=== PATIENT | female | born 1965 | race Caucasian/White ===

== ENCOUNTER 2017-03-30 03:54 | Emergency (ER) | payer MEDICAID ==
[2017-03-30 03:54] VITALS: BMI 24.7
[2017-03-30 04:16] VITALS: TEMP 98.1; O2SAT 98
[2017-03-30] MEDS ORDERED: TraMADol/Apap 37.5/325 mg Tab PO STA (05:31)
[2017-03-30] MEDS ORDERED: Tmp-Smz 800 mg-160 mg DS Tab PO ONE (05:31)
--- NOTE | 2017-03-30 05:31 | ED PDOC ---
Arrival/HPI - General Chief Complaint: Abnormal Skin Integrity Time Seen by Provider: 03/30/17 05:06 Historian: Patient - History of Present Illness Narrative History of Present Illness (Text): 03/30/17 05:06 Miryam Mosquera is a 51 year old female, whose past medical history includes hypercholesterolemia and GERD, who presents to the emergency department complaining of a cyst under her left armpit for one week. Patient denies any fever, chills, chest pain, shortness of breath, nausea, vomiting, diarrhea, urinary symptoms, back pain, neck pain, headache, dizziness, or any other complaints. Time/Duration: 1 week Symptom Onset: Gradual Symptom Course: Unchanged Severity Level: Mild Activities at Onset: Light Context: Home Past Medical History - Provider Review Nursing Documentation Reviewed: Yes - Infectious Disease Hx of Infectious Diseases: None - Tetanus Immunization Tetanus Immunization: Unknown - Past Medical History Past Medical History: No Previous - Cardiac Hx Cardiac Disorders: Yes - Pulmonary Hx Respiratory Disorders: No - Neurological Hx Neurological Disorder: No - HEENT Hx HEENT Disorder: No - Renal Hx Renal Disorder: No - Endocrine/Metabolic Hx Endocrine Disorders: No - Hematological/Oncological Hx Blood Disorders: No - Integumentary Hx Dermatological Disorder: No - Musculoskeletal/Rheumatological Hx Musculoskeletal Disorders: No - Gastrointestinal Hx Gastrointestinal Disorders: Yes Hx Gastroesophageal Reflux: Yes - Genitourinary/Gynecological Hx Genitourinary Disorders: No - Psychiatric Hx Psychophysiologic Disorder: No Hx Substance Use: No - Past Surgical History Past Surgical History: No Previous - Surgical History Hx Tubal Ligation: Yes - Anesthesia Hx Anesthesia: Yes Hx Anesthesia Reactions: No Hx Malignant Hyperthermia: No - Suicidal Assessment Feels Threatened In Home Enviroment: No Family/Social History - Physician Review Nursing Documentation Reviewed: Yes Family/Social History: No Known Family HX Smoking Status: Never Smoked Hx Alcohol Use: Yes Hx Substance Use: No Allergies/Home Meds Allergies/Adverse Reactions: Allergies No Known Allergies Allergy (Verified 01/23/16 16:50) Home Medications: Home Meds Medication Instructions Recorded Confirmed Ranitidine HCl [Zantac 150] 150 mg PO BID 10/29/13 05/20/15 Review of Systems - Physician Review All systems were reviewed & negative as marked: Yes - Review of Systems Constitutional: absent: Fevers, Night Sweats Eyes: absent: Vision Changes ENT: absent: Hearing Changes, Rhinorrhea Respiratory: absent: SOB Cardiovascular: absent: Chest Pain Gastrointestinal: absent: Abdominal Pain Genitourinary Female: absent: Dysuria, Urine Output Changes Musculoskeletal: absent: Arthralgias Skin: Other (cyst below left armpit) Neurological: absent: Headache, Dizziness Endocrine: absent: Diaphoresis Hemo/Lymphatic: absent: Adenopathy Psychiatric: absent: Anxiety Physical Exam Vital Signs Reviewed: Yes Vital Signs Temp Pulse Resp BP Pulse Ox 03/30/17 05:43 69 17 137/68 98 03/30/17 04:11 98.1 F 72 18 143/74 98 Temperature: Afebrile Blood Pressure: Normal Pulse: Regular Respiratory Rate: Normal Appearance: Positive for: Well-Appearing, Non-Toxic, Comfortable Pain Distress: None Mental Status: Positive for: Alert and Oriented X 3 - Systems Exam Head: Present: Atraumatic, Normocephalic Pupils: Present: PERRL Extroacular Muscles: Present: EOMI Conjunctiva: Present: Normal Mouth: Present: Moist Mucous Membranes Neck: Present: Normal Range of Motion Respiratory/Chest: Present: Clear to Auscultation, Good Air Exchange. No: Respiratory Distress, Accessory Muscle Use Cardiovascular: Present: Regular Rate and Rhythm, Normal S1, S2. No: Murmurs Abdomen: Present: Normal Bowel Sounds. No: Tenderness, Distention, Peritoneal Signs Back: Present: Normal Inspection Upper Extremity: Present: Normal Inspection. No: Cyanosis, Edema Lower Extremity: Present: Normal Inspection. No: Edema Neurological: Present: GCS=15, CN II-XII Intact, Speech Normal Skin: Present: Abscess (3cm in diameter under left armpit) Psychiatric: Present: Alert, Oriented x 3, Normal Insight, Normal Concentration Medical Decision Making ED Course and Treatment: 03/30/17 05:10 Impression: 51 year old female complaining of cyst under left armpit for one week. Differential Diagnosis included but are not limited to: Abscess Plan: -- Bactrim and Ultracet -- Reassess and disposition Prior Visits: Notes and results from previous visits were reviewed. Patient last seen in the ED on 01/23/16 for one month duration of intermittent headaches. Progress Notes: Reassessment Condition: Re-examined, Improved - Medication Orders Current Medication Orders: Discontinued Medications Tramadol/Acetaminophen (Ultracet 37.5/325 Mg) 1 tab PO ONCE STA Stop: 03/30/17 05:32 Last Admin: 03/30/17 05:39 Dose: 1 tab Trimethoprim/Sulfamethoxazole (Bactrim Ds Tab) 1 tab PO ONCE ONE PRN Reason: Protocol Stop: 03/30/17 05:32 Last Admin: 03/30/17 05:39 Dose: 1 tab - Scribe Statement The provider has reviewed the documentation as recorded by the Mague Merino Provider Scribe Attestation: All medical record entries made by the Scribe were at my direction and personally dictated by me. I have reviewed the chart and agree that the record accurately reflects my personal performance of the history, physical exam, medical decision making, and the department course for this patient. I have also personally directed, reviewed, and agree with the discharge instructions and disposition. Disposition/Present on Arrival - Present on Arrival Any Indicators Present on Arrival: No History of DVT/PE: No History of Uncontrolled Diabetes: No Urinary Catheter: No History of Decub. Ulcer: No History Surgical Site Infection Following: None - Disposition Have Diagnosis and Disposition been Completed?: Yes Diagnosis: Hidradenitis suppurativa of left axilla Disposition: HOME/ ROUTINE Disposition Time: 06:00 Condition: GOOD Discharge Instructions (ExitCare): Abscess Incision and Drainage (ED), Abscess (ED) Additional Instructions: follow up with your doctor or return in 48hrs for drain removal Prescriptions: Sulfamethoxazole/Trimethoprim [Bactrim DS 800 mg-160 mg] 1 tab PO BID #14 tab Tramadol HCl [Ultram] 50 mg PO QID #8 tab Referrals: Kian Mayes MD [Staff Provider] - Follow up with primary
[2017-03-30 05:44] VITALS: BP 137/68; PULSE 69; RESP 17
== END 2017-03-30 05:43 | disposition home or self-care (01) ==
LOC: ED 03:54
DX: L73.2 Hidradenitis suppurativa (principal)

== ENCOUNTER 2017-03-31 15:31 | Emergency (ER) | payer MEDICAID ==
[2017-03-31 15:35] VITALS: BMI 26.5
[2017-03-31 15:39] VITALS: TEMP 99.1
--- NOTE | 2017-03-31 15:50 | ED PDOC ---
Arrival/HPI <Abdon Tucker - Last Filed: 03/31/17 16:03> - General Historian: Patient - History of Present Illness Time/Duration: Prior to Arrival Symptom Onset: Sudden Symptom Course: Unchanged Context: Home <Rosalia Hamilton - Last Filed: 03/31/17 18:25> - General Chief Complaint: Trauma Time Seen by Provider: 03/31/17 15:39 - History of Present Illness Narrative History of Present Illness (Text): 03/31/17 15:53 51 yo female with PMH of HTN presented to ED after fall. Patient states that she was in the shower when she slipped and fell backwards, hitting her head on the side of the shower. She states she loss consciousness and fall was not witnessed. Patient states when she regained consciousness she was able to get up and ambulate. She denies any dizziness or lightheadedness prior to the fall. She states that the back of her head and neck hurt. Denies pain or trauma in any other location. Denies any dizziness, changes in vision, fever, chill, chest pain, abd pain. PMD: (Rosalia Hamilton) Past Medical History - Provider Review Nursing Documentation Reviewed: Yes - Infectious Disease Hx of Infectious Diseases: None - Tetanus Immunization Tetanus Immunization: Unknown - Past Medical History Past Medical History: No Previous - Cardiac Hx Cardiac Disorders: Yes - Pulmonary Hx Respiratory Disorders: No - Neurological Hx Neurological Disorder: No - HEENT Hx HEENT Disorder: No - Renal Hx Renal Disorder: No - Endocrine/Metabolic Hx Endocrine Disorders: No - Hematological/Oncological Hx Blood Disorders: No - Integumentary Hx Dermatological Disorder: No - Musculoskeletal/Rheumatological Hx Musculoskeletal Disorders: No - Gastrointestinal Hx Gastrointestinal Disorders: Yes Hx Gastroesophageal Reflux: Yes - Genitourinary/Gynecological Hx Genitourinary Disorders: No - Psychiatric Hx Psychophysiologic Disorder: No Hx Substance Use: No - Past Surgical History Past Surgical History: No Previous - Surgical History Hx Tubal Ligation: Yes - Anesthesia Hx Anesthesia: Yes Hx Anesthesia Reactions: No Hx Malignant Hyperthermia: No - Suicidal Assessment Feels Threatened In Home Enviroment: No <Rosalia Hamilton - Last Filed: 03/31/17 18:25> Family/Social History - Physician Review Nursing Documentation Reviewed: Yes Family/Social History: No Known Family HX Smoking Status: Light Smoker < 10 Cigarettes Daily Hx Alcohol Use: Yes Frequency of alcohol use: Socially Hx Substance Use: No <Rosalia Hamilton - Last Filed: 03/31/17 18:25> Allergies/Home Meds <Abdon Tucker - Last Filed: 03/31/17 16:03> <Rosalia Hamilton - Last Filed: 03/31/17 18:25> Allergies/Adverse Reactions: Allergies No Known Allergies Allergy (Verified 01/23/16 16:50) Home Medications: Home Meds Medication Instructions Recorded Confirmed Omeprazole 20 mg PO DAILY 03/31/17 03/31/17 Review of Systems - Review of Systems Constitutional: Normal. absent: Fatigue, Fevers Eyes: Normal. absent: Vision Changes ENT: Normal. absent: Sore Throat, Rhinorrhea Respiratory: Normal. absent: SOB, Cough, Wheezing Cardiovascular: Normal. absent: Chest Pain, Palpitations Gastrointestinal: Normal. absent: Abdominal Pain, Nausea, Vomiting Genitourinary Female: Normal. absent: Dysuria, Frequency, Hematuria Musculoskeletal: Normal, Neck Pain. absent: Arthralgias, Back Pain Skin: Normal. absent: Rash, Pruritis, Laceration Neurological: Headache. absent: Dizziness, Focal Weakness Endocrine: Normal. absent: Diaphoresis Hemo/Lymphatic: Normal. absent: Easy Bleeding, Easy Bruising Psychiatric: Normal <Rosalia Hamilton - Last Filed: 03/31/17 18:25> Physical Exam Finger Stick Blood Glucose: 69 - Systems Exam Head: Present: Normocephalic, Tenderness. No: Abrasion, Laceration Pupils: Present: PERRL Extroacular Muscles: Present: EOMI Conjunctiva: Present: Normal Mouth: Present: Moist Mucous Membranes Neck: Present: Normal Range of Motion, Paraspinal Tenderness Respiratory/Chest: Present: Clear to Auscultation, Good Air Exchange. No: Respiratory Distress, Accessory Muscle Use, Wheezes, Rales, Rhonchi, Tachypneic Cardiovascular: Present: Regular Rate and Rhythm, Normal S1, S2. No: Murmurs, Tachycardic, Bradycardic Abdomen: Present: Normal Bowel Sounds. No: Tenderness, Distention, Peritoneal Signs Back: Present: Normal Inspection. No: Midline Tenderness, Paraspinal Tenderness Upper Extremity: Present: Normal Inspection, Normal ROM, NORMAL PULSES. No: Cyanosis, Edema, Tenderness, Swelling Lower Extremity: Present: Normal Inspection, NORMAL PULSES, Normal ROM. No: Edema, CALF TENDERNESS, Tenderness, Swelling Neurological: Present: GCS=15, CN II-XII Intact, Speech Normal, Motor Func Grossly Intact, Normal Sensory Function, Gait Normal Skin: Present: Warm, Dry, Normal Color. No: Rashes, Diaphoretic, Cold, Pale, Laceration Psychiatric: Present: Alert, Oriented x 3, Normal Insight, Normal Concentration <Rosalia Hamilton - Last Filed: 03/31/17 18:25> Vital Signs Temp Pulse Resp BP Pulse Ox 03/31/17 17:07 79 18 167/89 H 99 03/31/17 15:38 99.1 F 85 20 169/98 H 99 Medical Decision Making <Abdon Tucker - Last Filed: 03/31/17 16:03> <Rosalia Hamilton - Last Filed: 03/31/17 18:25> ED Course and Treatment: Patient Seen With Resident: In agreement with resident note which contains more details about the patient. Patient was seen and evaluated with resident. Came up with plan and treatment together. A 51 year old female with neck pain and headache after slip and fall. Additional HPI as noted by resident. On physical exam, patient has paraspinal tenderness of neck, normal range of motion and tenderness of head with no abrasion or laceration. Ordered CT of head and CT of cervical spine. Will give patient Tylenol for pain. (Abdon Tucker) 03/31/17 16:01 Impression: 51 yo female with PMH of HTN presented after fall with head and neck pain. Differential diagnoses includes but not limited to: - hematoma Plan: - CT head and cervical spine - Tylenol 03/31/17 17:42 CT HEAD FINDINGS: HEMORRHAGE: No intracranial hemorrhage. BRAIN: No mass effect or edema. The bethea-white matter differentiation appears intact. Please note that MRI with diffusion imaging is more sensitive in the detection of acute ischemic event. VENTRICLES: No hydrocephalus. CALVARIUM: Unremarkable. PARANASAL SINUSES: Unremarkable as visualized. No significant inflammatory changes. MASTOID AIR CELLS: Unremarkable as visualized. No inflammatory changes. OTHER FINDINGS: Large posterior scalp hematoma. IMPRESSION: Large posterior scalp hematoma. 03/31/17 18:[address] FINDINGS: VERTEBRAE: No fracture. Normal alignment. No destructive bony lesion. DISCS/SPINAL CANAL/NEURAL FORAMINA: No significant central canal or neural foraminal stenosis. Discs heights are grossly preserved. PARASPINAL SOFT TISSUES: Unremarkable. OTHER FINDINGS: None. IMPRESSION: Unremarkable CT of the cervical spine. 03/31/17 18:23 - All results discussed with patient. She is to follow up with PMD in 1-2 days. If symptoms worsen she is to return to ED. Discharge instructions discussed with patient, all questions answered. (Rosalia Hamilton) - RAD Interpretation Radiology Orders: 03/31/17 15:48 CERVICAL SPINE W/O CONTRAST [CT] Stat HEAD W/O CONTRAST [CT] Stat - Medication Orders Current Medication Orders: Discontinued Medications Acetaminophen (Tylenol 325mg Tab) 975 mg PO STAT STA Stop: 03/31/17 15:49 Last Admin: 03/31/17 16:19 Dose: 975 mg - Scribe Statement The provider has reviewed the documentation as recorded by the Scribe <Abdon Tucker - Last Filed: 03/31/17 16:03> <Rosalia Hamilton - Last Filed: 03/31/17 18:25> - Scribe Statement Elijah Horton Provider Scribe Attestation: All medical record entries made by the Scribe were at my direction and personally dictated by me. I have reviewed the chart and agree that the record accurately reflects my personal performance of the history, physical exam, medical decision making, and the department course for this patient. I have also personally directed, reviewed, and agree with the discharge instructions and disposition. (Abdon Tucker) Disposition/Present on Arrival <Abdon Tucker - Last Filed: 03/31/17 16:03> - Present on Arrival Any Indicators Present on Arrival: No History of DVT/PE: No History of Uncontrolled Diabetes: No Urinary Catheter: No History of Decub. Ulcer: No History Surgical Site Infection Following: None - Disposition Have Diagnosis and Disposition been Completed?: Yes Disposition Time: 18:20 Patient Plan: Discharge <Rosalia Hamilton - Last Filed: 03/31/17 18:25> - Disposition Diagnosis: Neck pain, Hematoma Disposition: HOME/ ROUTINE Patient Problems: Current Active Problems Problem Status Onset Hematoma Acute Neck pain Acute Condition: GOOD Discharge Instructions (ExitCare): Fall Prevention (ED), Hematoma (ED) Additional Instructions: Miryam Mosquera, thank you for letting us take care of you today. Your provider was Dr. Hamilton and Dr. Tucker. You were treated for fall, hematoma of back of the head. The emergency medical care you received today was directed at your acute symptoms. If you were prescribed any medication, please fill it and take as directed. It may take several days for your symptoms to resolve. Return to the Emergency Department if your symptoms worsen, do not improve, or if you have any other problems. Please contact your doctor or call one of the physicians/clinics you have been referred to that are listed on the Patient Visit Information form that is included in your discharge packet. Bring any paperwork you were given at discharge with you along with any medications you are taking to your follow up visit. Our treatment cannot replace ongoing medical care by a primary care provider (PCP) outside of the emergency department. Thank you for allowing the [facility] team to be part of your care today. If you had an X-Ray or CT scan: A Radiologist will review the ED reading if any change in treatment is needed we will contact you. Prescriptions: Ibuprofen [Motrin] 600 mg PO Q6 PRN #20 tab PRN Reason: Pain, Moderate (4-7) Referrals: PCP,NO [Primary Care Provider] - Follow up with primary
[2017-03-31 17:07] VITALS: PULSE 79
--- NOTE | 2017-03-31 17:31 | CT ---
PROCEDURE: CT HEAD WITHOUT CONTRAST. HISTORY: FALL COMPARISON: None available. TECHNIQUE: Axial computed tomography images were obtained through the head/brain without intravenous contrast. Radiation dose: Total exam DLP = 725.84 mGy-cm. This CT exam was performed using one or more of the following dose reduction techniques: Automated exposure control, adjustment of the mA and/or kV according to patient size, and/or use of iterative reconstruction technique. FINDINGS: HEMORRHAGE: No intracranial hemorrhage. BRAIN: No mass effect or edema. The bethea-white matter differentiation appears intact. Please note that MRI with diffusion imaging is more sensitive in the detection of acute ischemic event. VENTRICLES: No hydrocephalus. CALVARIUM: Unremarkable. PARANASAL SINUSES: Unremarkable as visualized. No significant inflammatory changes. MASTOID AIR CELLS: Unremarkable as visualized. No inflammatory changes. OTHER FINDINGS: Large posterior scalp hematoma. IMPRESSION: Large posterior scalp hematoma.
--- NOTE | 2017-03-31 18:07 | CT ---
PROCEDURE: CT Cervical Spine without contrast HISTORY: <FALL> COMPARISON: None available. TECHNIQUE: Axial computed tomography images were obtained of the cervical spine without the use of intravenous contrast. Coronal and sagittal reformatted images were created and reviewed. Radiation dose: Total exam DLP = 510 mGy-cm. This CT exam was performed using one or more of the following dose reduction techniques: Automated exposure control, adjustment of the mA and/or kV according to patient size, and/or use of iterative reconstruction technique. FINDINGS: VERTEBRAE: No fracture. Normal alignment. No destructive bony lesion. DISCS/SPINAL CANAL/NEURAL FORAMINA: No significant central canal or neural foraminal stenosis. Discs heights are grossly preserved. PARASPINAL SOFT TISSUES: Unremarkable. OTHER FINDINGS: None. IMPRESSION: Unremarkable CT of the cervical spine.
[2017-03-31 18:56] VITALS: BP 162/88; RESP 16; O2SAT 100
== END 2017-03-31 18:56 | disposition home or self-care (01) ==
LOC: ED 15:31
DX: M54.2 Cervicalgia (principal); S00.03XA Contusion of scalp, initial encounter; W18.2XXA Fall in (into) shower or empty bathtub, initial encounter; Y93.E1 Activity, personal bathing and showering